=== PATIENT | male | born 1970 | race Caucasian/White ===

== ENCOUNTER 2020-08-25 16:09 | Emergency (ER) | payer OTHER, SELFPAY ==
[2020-08-25 16:15] VITALS: BP 140/85; PULSE 79; RESP 14; TEMP 37.3; O2SAT 99; BMI 20.9
--- NOTE | 2020-08-25 16:42 | CM.SWNOTE ---
SALES AND CUSTOMER RELATIONS REP Note SALES AND CUSTOMER RELATIONS REP receives consult and meets privately with patient in the waiting area. Patient is 50 y/o male seeking medical clearance evaluation for detox bed at [facility] in [place]. Patient states he went to the [facility] and they sent him to the ED. Patient states he contacted his insurance company [employer] [place] and this evaluation/medical report is what they need for coverage of the detox and treatment. Patient states the [employer] fax number is : [phone] SALES AND CUSTOMER RELATIONS REP states that it is uncertain how long patient will need to wait to be seen in the ED due to the wait. Patient states he does not have time today to wait but will come back early in the morning and take tomorrow off work. SALES AND CUSTOMER RELATIONS REP informs patient that ED is open 24 hours and it is uncertain what the wait time will be at any given time. SALES AND CUSTOMER RELATIONS REP encourages patient to stay and states that ED Provider can do the needed labs for her medical clearance for detox. Patient states he will return tomorrow morning. Plan: patient is leaving without being seen today and plans to return to this ED for medical evaluation. Araseli Souza MSW
--- NOTE | 2020-08-26 16:31 | CM.SWNOTE ---
BACK STAYER Note BACK STAYER speaks with patient, he states that he came to this ED this morning at 6:00am for medical detox evaluation and that the ED staff contacts his insurance company and there is some confusion about what his insurance company needs in order for patient to get into detox. Patient states that [facility] will have a bed for him on Saturday08/29/20. BACK STAYER asks patient about his use, he states he is still using and he has been using 2 spoonfuls of Kratom every 6 hours. 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 Patient states he wants to get help and get treatment and is frustrated by the process with the ED and his insurance. Patient states that he and his have heard differing reports about where he can get the medical evaluation. BACK STAYER states that BACK STAYER will be at the hospital on Saturday and BACK STAYER can ensure that patient gets the medical evaluation and BACK STAYER evaluation needed and BACK STAYER will fax to insurance company for him to obtain detox bed. DA Sharp
== END 2020-08-25 16:40 | disposition left against medical advice (07) ==
PROVIDERS: Emergency Provider Emergency Medicine; Family Provider Family Medicine
CPT/HCPCS: 99281

== ENCOUNTER → 2020-11-17 13:47 | Outpatient (CLI) | payer OTHER, SELFPAY ==
[2020-11-17 14:45] LABS: Ur Creatinine Normal (Normal); Ur Specific Gravity Normal (Normal)
[2020-11-17 14:46] LABS: UR Morphine/Opiate cutoff 300 Negative (Negative); Urine Amphetamines Negative (Negative); Urine Barbiturates Negative (Negative); Urine Benzodiazepines Negative (Negative); Urine Cocaine Negative (Negative); Urine MDMA Negative (Negative); Urine Methadone Negative (Negative); Urine Methamphetamines Negative (Negative); Urine Oxycodone Negative (Negative); Urine Phencyclidine Negative (Negative); Urine Tetrahydrocannabinol Negative (Negative); Urine Tricyclic Antidepressant Negative (Negative); Urine pH Normal (Normal)
== END ==
PROVIDERS: Family Provider Family Medicine; Referring Provider Family Medicine Addiction Medicine; Visit Provider Family Medicine Addiction Medicine
DX: F10.20 Alcohol dependence, uncomplicated (principal); F11.20 Opioid dependence, uncomplicated; F12.20 Cannabis dependence, uncomplicated
CPT/HCPCS: 80305

== ENCOUNTER → 2021-01-10 13:49 | Outpatient (CLI) | payer OTHER, SELFPAY ==
[2021-01-10 16:32] LABS: UR Morphine/Opiate cutoff 300 Negative (Negative); Ur Creatinine Normal (Normal); Ur Specific Gravity Normal (Normal); Urine Amphetamines Negative (Negative); Urine Barbiturates Negative (Negative); Urine Benzodiazepines Negative (Negative); Urine Cocaine Negative (Negative); Urine MDMA Negative (Negative); Urine Methadone Negative (Negative); Urine Methamphetamines Negative (Negative); Urine Oxycodone Negative (Negative); Urine Phencyclidine Negative (Negative); Urine Tetrahydrocannabinol Negative (Negative); Urine Tricyclic Antidepressant Negative (Negative); Urine pH Normal (Normal)
== END ==
PROVIDERS: Family Provider Family Medicine; Referring Provider Family Medicine Addiction Medicine; Visit Provider Family Medicine Addiction Medicine
DX: F10.20 Alcohol dependence, uncomplicated (principal); F11.20 Opioid dependence, uncomplicated; F12.20 Cannabis dependence, uncomplicated
CPT/HCPCS: 80305

== ENCOUNTER → 2021-04-24 09:09 | Outpatient (CLI) | payer OTHER, SELFPAY ==
[2021-04-26 14:36] LABS: Cannabinoid Screen, Urine Negative ng/mL (Cutoff=20); Creatinine, Urine 22.2 mg/dL (20.0-300.0); Ethyl Glucuronide Screen Negative ng/mL (Cutoff=500); Methadone Screen, Urine Negative ng/mL (Cutoff=300); Oxycodone/Oxymorphone, Urine Negative ng/mL (Cutoff=100); Phencyclidine Screen, Urine Negative ng/mL (Cutoff=25); pH, Urine 7.1 (4.5-8.9)
== END ==
PROVIDERS: Family Provider Family Medicine; Referring Provider Preventive Medicine Addiction Medicine; Visit Provider Preventive Medicine Addiction Medicine
DX: F10.20 Alcohol dependence, uncomplicated (principal); F11.20 Opioid dependence, uncomplicated; F12.20 Cannabis dependence, uncomplicated
CPT/HCPCS: 80307; 80321

== ENCOUNTER → 2021-07-31 07:40 | Outpatient (CLI) | payer OTHER, SELFPAY ==
[2021-07-31 08:45] LABS: Hematocrit 46.7 % (41-53); Hemoglobin 15.8 g/dL (13.5-17.5); Mean Corpuscular HGB Conc 33.9 % (30-36); Mean Corpuscular Hemoglobin 31.2 PG (26-34); Mean Corpuscular Volume 91.9 fL (80-100); Platelet Count 225 X10^3/uL (150-400); Red Blood Cell Count 5.08 X10^6/uL (4.5-5.9); Red Cell Distribution Width 13.5 % (11.6-14.8); White Blood Cell Count 5.6 X10^3/uL (4.5-11.0)
[2021-07-31 09:08] LABS: Alanine Aminotransferase 28 IU/L (<50); Albumin 4.4 g/dL (3.5-5.0); Albumin Globulin Ratio 1.8 (1.0-2.8); Alkaline Phosphatase 54 U/L (38-126); Aspartate Aminotransferase 26 IU/L (17-59); BUN Creatinine Ratio 15.6 (6-22); Bilirubin Total 0.3 mg/dL (0.2-1.3); Blood Urea Nitrogen 15 mg/dL (9-20); Calcium 9.3 mg/dL (8.4-10.2); Carbon Dioxide 29 mmol/L (22-32); Chloride 106 mmol/L (98-107); Cholesterol 160 mg/dL (140-199); Estimated Glomerular Filt Rate > 60 mL/min (>60); Globulin 2.5 g/dL (1.7-4.1); Glucose 93 mg/dL (70-100); HDL Cholesterol 49 mg/dL (40-60); HEMOLYSIS < 15 (0-50); LDL Cholesterol Calculated 96 mg/dL (<100); Potassium 4.2 mmol/L (3.4-5.1); Sodium 141 mmol/L (137-145); Total Protein 6.9 g/dL (6.3-8.2); Triglycerides 77 mg/dL (35-150)
[2021-07-31 10:06] LABS: Neutrophils Absolute Manual 2352 /uL (3000-5900); Total Cells Counted 100
[2021-07-31 10:07] LABS: RBC Morphology Normal Morphology
== END ==
PROVIDERS: Family Provider Family Medicine; Referring Provider Family Medicine; Visit Provider Family Medicine
DX: Z00.00 Encounter for general adult medical examination without abnormal findings (principal); Z13.6 Encounter for screening for cardiovascular disorders; Z13.220 Encounter for screening for lipoid disorders
CPT/HCPCS: 36415; 80053; 80061; 85025

== ENCOUNTER → 2021-12-25 09:15 | Outpatient (CLI) | payer OTHER, SELFPAY ==
[2021-12-25 10:29] LABS: COVID19 -Nasal RAPID Negative (Negative)
== END ==
PROVIDERS: PCP Pediatrics; Visit Provider Surgery
DX: Z20.822 Contact with and (suspected) exposure to COVID-19 (principal); Z01.812 Encounter for preprocedural laboratory examination
CPT/HCPCS: 87635; C9803

== ENCOUNTER 2021-12-26 06:29 | Day surgery (SDC) | payer OTHER, SELFPAY ==
--- NOTE | 2021-12-26 | PATH_ITS ---
[facility] Accession Number: [id number] . 01 Material submitted: . rectum - RECTUM BIOPSY . 01 Diagnosis: Rectum, Biopsy: Tubular adenoma, two fragments. JOSE LUIS 12/28/2021 1120 Local . 01 Electronically signed: . Veda Medina MD, Pathologist NPI- [id number] . 01 Gross description: . RECTUM BIOPSY: Received in formalin are 2 fragment(s) of tobias, soft tissue measuring 0.3 x 0.3 x 0.2 cm to 0.2 x 0.2 x 0.1 cm submitted entirely in 1 cassette(s) /CPE 12/27/2021 0649 Local . 01 Pathologist provided ICD-10: D12.8 . 01 CPT . 026596 Specimen Comment: A courtesy copy of this report has been sent to [phone] Performed at: 01 [facility] [address] [place] [address], [place], [place] [id number] MD Jamshid Reis MD Phone: [phone]
[2021-12-26 07:09] VITALS: BMI 23.8
[2021-12-26 07:24] VITALS: BP 129/85; PULSE 64; RESP 16; TEMP 36.6; O2SAT 100
[2021-12-26] MEDS: LACTATED RINGERS 1,000 ML 200 ML IV (07:34)
--- NOTE | 2021-12-26 07:44 | PM.HP.1 ---
History of Present Illness History of Present Illness Date Patient Seen: 12/26/21 Time Patient Seen: 07:44 Chief complaint: SDC Narrative: The patient presents for colorectal screening. They have never had any previous examination for such. No personal or family history of colon cancer. On further history denies any recent gastrointestinal symptoms. No nausea, vomiting, abdominal pain, loss of appetite, unexplained weight loss, change in bowel habits, diarrhea, constipation, melena, hematochezia, or bright red blood per rectum. Patient History Medical History Costochondritis Preventative [facility] care Screening for skin cancer Surgical History History of vasectomy Family & Social History Family History Mother Age: 73 Malignant neoplasm of female breast, unspecified laterality, unspecified site of breast Social History: household members spouse,family Tobacco & Substance use: Smoking Status Never smoker alcohol intake never alcohol intake frequency 3 or more drinks per day Substance Use Type does not use,other Meds Home Medications and Allergies Home Medications Medication Instructions Recorded Confirmed Type ASCORBIC ACID (VITAMIN C) 1,000 mg PO EVERY OTHER DAY ##0 08/28/11 12/26/21 History MULTIVITAMIN (#MULTIPLE VITAMINS) 1 cap PO Q DAY ##0 08/28/11 10/19/21 History omega 3-cqk-wfa-fish oil 1,000 mg 1,000 mg PO ##0 04/08/16 10/19/21 History (120 mg-180 mg) capsule (Fish Oil) quercetin PO 08/23/21 10/19/21 History Allergies Allergy/AdvReac Type Severity Reaction Status Date / Time No Known Drug Allergies Allergy Verified 12/26/21 07:22 Exam Vital Signs (past 8 hours): - 12/26/21 07:24 Temperature 97.9 F Pulse Rate 64 Respiratory Rate 16 Blood Pressure 129/85 Pulse Oximetry 100 Oxygen Delivery Method Room Air Oxygen Delivery Method Room Air Narrative Exam Narrative: General adult male alert oriented no acute distress Abdomen soft nontender nondistended Assessment & Plan Assessment & Plan narrative: The patient requires colorectal screening and colonoscopy is recommended. Technical details were discussed. Risks, benefits, alternatives explained. Risks including but not limited to myocardial infarction, aspiration, bleeding, pain, missed lesion, incomplete examination, need for further radiographic studies, colonic perforation, and need for major abdominal surgery were discussed. All questions were answered to their satisfaction, and they are in agreement with this plan. Time Spent With Patient Critical Care time: I spent a total of [] minutes of critical care time on this patient's care today; this time is exclusive of procedural time.
--- NOTE | 2021-12-26 07:45 | P.OP.COLON_ITS ---
Operative Date/Time/Diagnoses Date of procedure: 12/26/21 Time of procedure: 07:46 Pre-op diagnosis: screening Post-op diagnosis: same Procedure & Clinicians Study performed: Colonoscopy Same procedure as scheduled: Yes Indications: Screening Surgeon: Issa Rodriguez Procedure Notes Procedure in detail: Medications: Conscious sedation using 7mg IV midazolam and 200mcg IV of fentanyl The history and physical was performed/updated and the patient is ASA class is 1. The procedure was discussed in detail with the patient. Potential risks complications including infection, bleeding, missed diagnosis, perforation, need for surgery, and were explained. Their questions were answered and informed consent was obtained. Patient was brought to the procedure room and placed standard monitoring equipment. The patient's vital signs were monitored continuously throughout the entire procedure. Prior to starting time-out was performed. The patient was placed in the left lateral recumbent position. Procedural sedation was adminis tered. Examination began with a thorough inspection of the perianal area there was no evidence of fissures, fistulae, external hemorrhoids or cutaneous malignancy. The colonoscopy scope was then placed into the anal canal and was advanced to the cecum, which was identified by the ileocecal valve, the appendiceal orifice and the confluence of the taenia. The scope was then slowly withdrawn examining colon thoroughly in all directions, irrigating it of any residual stool. FINDINGS 1. Distal Rectum 5 mm polyp removed with biopsy forceps 2. Sigmoid Diverticulosis-mild The patient tolerated the procedure well. They will be discharged once criteria are met. The prep was of good/excellent quality. The withdrawl time was 6 minutes. The sedation time was 17 minutes. Impression: Colonic polyp Post-procedure Recommendations: Will call with biopsy results Disposition: same day surgery
[2021-12-26] MEDS: MIDAZOLAM 5 MG/5 ML VIAL 7 MG IV (07:49)
[2021-12-26 08:10] VITALS: BP 102/56; PULSE 58; RESP 16; TEMP 36.4; O2SAT 100
[2021-12-26 08:15] VITALS: BP 86/55; PULSE 64; RESP 12; O2SAT 95
[2021-12-26] MEDS: fentaNYL 100 MCG/2 ML INJ 200 MCG IV (08:15)
[2021-12-26 08:20] VITALS: BP 96/64; PULSE 57; RESP 10; O2SAT 96
[2021-12-26 08:25] VITALS: BP 98/66; PULSE 63; RESP 16; O2SAT 97
[2021-12-26 08:29] VITALS: BP 103/64; PULSE 61; RESP 10; TEMP 36.4; O2SAT 97
== END 2021-12-26 08:44 | disposition home or self-care (01) ==
PROVIDERS: PCP Pediatrics; Referring Provider Surgery; Visit Provider Surgery
PROC: 0DJD8ZZ Inspection of Lower Intestinal Tract, Via Natural or Artificial Opening Endoscopic (ICD-10-PCS; CPT 45378; principal; 2021-12-26 07:45)
DX: Z12.11 Encounter for screening for malignant neoplasm of colon (principal); K57.30 Diverticulosis of large intestine without perforation or abscess without bleeding; D12.8 Benign neoplasm of rectum
CPT/HCPCS: 45380; 99152; J2250; J3010

== ENCOUNTER → 2023-05-14 08:37 | Outpatient (CLI) | payer OTHER, SELFPAY ==
[2023-05-14 09:26] LABS: Add Manual Diff / Slide Review NO; Basophils Absolute Auto 100 /uL (0-100); Basophils Percent Auto 0.9 % (0-2); Eosinophils Absolute Auto 100 /uL (0-450); Eosinophils Percent Auto 1.1 % (2-4); Hematocrit 45.4 % (41-53); Hemoglobin 15.7 g/dL (13.5-17.5); Lymphocytes Absolute Auto 1800 /uL (1100-4500); Mean Corpuscular HGB Conc 34.6 % (30-36); Mean Corpuscular Hemoglobin 31.4 PG (26-34); Mean Corpuscular Volume 90.9 fL (80-100); Monocytes Absolute Auto 400 /uL (0-900); Neutrophils Absolute Auto 3400 /uL (1500-7000); Platelet Count 234 X10^3/uL (150-400); Red Cell Distribution Width 13.7 % (11.6-14.8); White Blood Cell Count 5.8 X10^3/uL (4.5-11.0)
[2023-05-14 10:07] LABS: Alanine Aminotransferase 25 IU/L (<50); Albumin 4.3 g/dL (3.5-5.0); Albumin Globulin Ratio 1.4 (1.0-2.8); Alkaline Phosphatase 47 U/L (38-126); Aspartate Aminotransferase 27 IU/L (17-59); BUN Creatinine Ratio 16.1 (6-22); Bilirubin Total 0.8 mg/dL (0.2-1.3); Blood Urea Nitrogen 14 mg/dL (9-20); Calcium 9.2 mg/dL (8.4-10.2); Carbon Dioxide 28 mmol/L (22-32); Chloride 103 mmol/L (98-107); Cholesterol 161 mg/dL (140-199); Estimated Glomerular Filt Rate > 60 mL/min (>60); Glucose 92 mg/dL (70-100); HDL Cholesterol 38 mg/dL (40-60); HEMOLYSIS < 15 (0-50); LDL Cholesterol Calculated 104 mg/dL (<100); Potassium 4.2 mmol/L (3.4-5.1); Sodium 139 mmol/L (137-145); Total Protein 7.3 g/dL (6.3-8.2); Triglycerides 96 mg/dL (35-150)
[2023-05-14 10:34] LABS: TSH w/ Reflex to FT4 1.85 uIU/mL (0.47-4.68)
[2023-05-14 10:36] LABS: Prostate Specific Antigen Scrn 1.75 ng/mL (0.1-4.0)
== END ==
PROVIDERS: PCP Family Medicine; Referring Provider Family Medicine; Visit Provider Family Medicine
DX: Z00.00 Encounter for general adult medical examination without abnormal findings (principal); Z12.5 Encounter for screening for malignant neoplasm of prostate
CPT/HCPCS: 36415; 80053; 80061; 84443; 85025; G0103

== ENCOUNTER → 2023-06-14 11:00 | Outpatient (CLI) | payer OTHER, SELFPAY ==
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
== END ==
PROVIDERS: PCP Family Medicine; Referring Provider Nurse Practitioner Family; Visit Provider Nurse Practitioner Family
DX: S90.31XA Contusion of right foot, initial encounter (principal); V29.99XA Rider (driver) (passenger) of other motorcycle injured in unspecified traffic accident, initial encounter; M19.071 Primary osteoarthritis, right ankle and foot; M77.31 Calcaneal spur, right foot
CPT/HCPCS: 73630

== ENCOUNTER → 2023-06-21 19:18 | Outpatient (CLI) | payer OTHER, SELFPAY ==
--- NOTE | 2023-06-21 | DI.MRI.S_ITS ---
PROCEDURE: MR ANKLE RT WO CON INDICATIONS: Pain in right ankle and joints of right foot TECHNIQUE: Noncontrast sagittal T1 spin echo and T2 fast spin echo with fat saturation, axial proton density fast spin echo and T2 fast spin echo with fat saturation, coronal T1 spin echo and T2 fast spin echo with fat saturation through the ankle/hindfoot. COMPARISON: None. FINDINGS: Image quality: Excellent. Bones and joints: There is mild ankle soft tissue swelling. Marrow edema is noted in visualized 3rd through 5th metatarsal bases without definite fracture line. Mild edema in 1st metatarsal base and distal portion of cuboid are also seen. No discrete fracture line. No osteochondral injuries of the talar dome. Small tibiotalar joint effusion is seen, no gross loose bodies. Medial structures: The distal posterior tibialis tendon is mildly thickened with small amount of surrounding fluid distending tendon sheath. The flexor digitorum longus, and flexor hallucis longus tendons are intact. The posterior tibial neurovascular bundle appears normal within the tarsal tunnel, without extrinsic mass effect. The deltoid ligament and spring ligament are mildly thickened. Lateral structures: The anterior talofibular, calcaneofibular, and posterior talofibular ligaments appear thickened with intrasubstance T2 hyperintense signal.. More superiorly, the anterior and posterior tibiofibular ligaments also appears thickened with intrasubstance T2 hyperintense signal. The tibiofibular syndesmosis is normal in width at 2 mm or less. The peroneus longus and brevis tendons are mildly thickened at the level of lateral malleolus extending to the level of calcaneocuboid joint. The sinus tarsi demonstrates normal fatty signal, without edema, fibrosis, or cyst formation. Visualized sinus tarsi components (cervical ligament, interosseous talocalcaneal ligament, roots of the inferior extensor retinaculum) appear normal. Lobulated subcutaneous soft tissue T2 hyperintense signal contains internal septation in dorsal and lateral aspect of midfoot and forefoot is seen incompletely evaluated on this study. Anterior structures: The tibialis anterior, extensor hallucis longus, and extensor digitorum longus tendons appear intact. The dorsal talonavicular ligament appears intact. Posterior and plantar structures: Achilles tendon is intact. Medial and lateral bands of the plantar fascia are of normal thickness. No abductor digiti quinti muscle atrophy to suggest Castellon neuropathy. IMPRESSION: 1. Likely bony contusion involving 3rd through 5th metatarsal base and distal cuboid. Contusion versus changes related to osteoarthritis involving 1st metatarsal base. Possible subcutaneous soft tissue hematoma over dorsal and medial aspect of forefoot and midfoot, please correlate with MRI of foot findings. 2. No other area of abnormal marrow signal. No osteochondral injuries of talar dome. Small joint effusion, no gross loose bodies. 3. Low-grade tenosynovitis involving distal posterior tibialis tendon. 4. Mild tendinosis involving peroneus tendons at the level of lateral malleolus extending to the level of cuboid. 5. Low-grade medial ankle ligament sprain. Moderate grade sprain/intrasubstance partial-thickness tear involving lateral ankle ligaments. No full-thickness ligament rupture. Dictated by: Flako Machado M.D. on 06/24/2023 at 11:42 Approved by: lFako Machado M.D. on 06/24/2023 at 11:59
--- NOTE | 2023-06-21 | DI.MRI.S_ITS ---
PROCEDURE: MR FOOT RT WO CON INDICATIONS: Pain in right ankle and joints of right foot TECHNIQUE: Multiphasic, multisequence MRI of the forefoot was performed, without intravenous contrast administration. COMPARISON: [facility], CR, XR FOOT RT MIN 3V, 06/14/2023, 11:07. FINDINGS: Image quality: Excellent. Bones and joints: Osteoarthritic changes are noted throughout midfoot and forefoot more notably involving 1st MTP joint and 1st through 4th TMT joints. Subcortical cystic changes and T2 hyperintense signal involving 1st metatarsal head, 1st metatarsal base, 3rd 3rd through 5th metatarsal base are seen without definite fracture line. No other area of abnormal marrow signal. No signal abnormality is seen within the sesamoids of 1st metatarsal head. Soft tissues: Lobulated and septated area of T2 hyperintense signal and T1 hypointense signal involving dorsal and lateral midfoot and forefoot soft tissue is seen measures up to 4.2 x 0.9 x 8.3 cm in size series 7, image 13 and series 9, image 23. The visualized plantar foot muscles demonstrate normal signal and bulk. Visualized flexor and extensor tendons appear intact, without tenosynovitis. The distal insertions of the peroneus brevis and longus tendons appear intact. The principal Lisfranc ligament appears intact. IMPRESSION: 1. Mild midfoot and forefoot joint osteoarthritis. Suggestion of contusion versus changes secondary to osteoarthritis involving 3rd through 5th metatarsal bases. Likely osteochondral injuries involving 1st metatarsal head and 1st metatarsal base. No definite acute fracture or dislocation. 2. Significant soft tissue swelling and edema over dorsal and lateral aspect of midfoot and forefoot with lobulated and septated heterogeneously T2 hyperintense signal within subcutaneous soft tissue as described above likely represent organizing hematoma given patient's history of recent trauma. Clinical correlation and follow-up is recommended. 3. Extensor and flexor tendons are intact. No gross right foot muscle signal abnormalities. Dictated by: Flako Machado M.D. on 06/24/2023 at 10:52 Approved by: Flako Machado M.D. on 06/24/2023 at 11:41
== END ==
PROVIDERS: PCP Family Medicine; Referring Provider Physician Assistant Medical; Visit Provider Physician Assistant Medical
DX: M25.571 Pain in right ankle and joints of right foot (principal); M19.071 Primary osteoarthritis, right ankle and foot; M79.89 Other specified soft tissue disorders
CPT/HCPCS: 73718; 73721

== ENCOUNTER → 2023-07-16 12:40 | Outpatient (CLI) | payer OTHER, SELFPAY | LOC: WC 07-23 12:40 | PROVIDERS: PCP Family Medicine; Referring Provider Family Medicine; Visit Provider Surgery | DX: S97.81XA Crushing injury of right foot, initial encounter (principal); R60.0 Localized edema; L53.9 Erythematous condition, unspecified | CPT/HCPCS: 11042; 99204; 99214 ==

== ENCOUNTER → 2023-07-23 15:07 | Outpatient (CLI) | payer OTHER, SELFPAY | PROVIDERS: PCP Family Medicine; Referring Provider Orthopaedic Surgery Foot and Ankle Surgery; Visit Provider Surgery | DX: S91.302A Unspecified open wound, left foot, initial encounter (principal); S97.81XA Crushing injury of right foot, initial encounter; L08.89 Other specified local infections of the skin and subcutaneous tissue; S90.32XA Contusion of left foot, initial encounter; R60.0 Localized edema; L53.9 Erythematous condition, unspecified | CPT/HCPCS: 11042 ==

== ENCOUNTER → 2023-07-24 14:56 | Outpatient (CLI) | payer OTHER, SELFPAY ==
[2023-07-26 18:32] LABS: C difficie Toxins A and B, EIA Negative (Negative)
== END ==
PROVIDERS: PCP Family Medicine; Referring Provider Nurse Practitioner; Visit Provider Nurse Practitioner
DX: R19.7 Diarrhea, unspecified (principal)
CPT/HCPCS: 87045; 87177; 87324

== ENCOUNTER → 2023-08-02 09:15 | Outpatient (CLI) | payer OTHER, SELFPAY | PROVIDERS: PCP Family Medicine; Referring Provider Family Medicine; Visit Provider Physician Assistant | DX: S91.301A Unspecified open wound, right foot, initial encounter (principal) | CPT/HCPCS: 11042; 99214 ==

== ENCOUNTER → 2023-08-06 14:53 | Outpatient (CLI) | payer OTHER, SELFPAY | PROVIDERS: PCP Family Medicine; Referring Provider Orthopaedic Surgery Foot and Ankle Surgery; Visit Provider Surgery | DX: S91.301A Unspecified open wound, right foot, initial encounter (principal); S97.81XS Crushing injury of right foot, sequela; M79.81 Nontraumatic hematoma of soft tissue; R60.0 Localized edema | CPT/HCPCS: 11042 ==

== ENCOUNTER → 2023-08-13 14:25 | Outpatient (CLI) | payer OTHER, SELFPAY | LOC: WC 14:56 | PROVIDERS: PCP Family Medicine; Referring Provider Orthopaedic Surgery Foot and Ankle Surgery; Visit Provider Surgery | DX: S91.301A Unspecified open wound, right foot, initial encounter (principal); S97.81XS Crushing injury of right foot, sequela; R60.0 Localized edema | CPT/HCPCS: 11042; 99213 ==

== ENCOUNTER → 2023-08-27 14:45 | Outpatient (CLI) | payer OTHER, SELFPAY | PROVIDERS: PCP Family Medicine; Referring Provider Family Medicine; Visit Provider Surgery | DX: S91.301D Unspecified open wound, right foot, subsequent encounter (principal) | CPT/HCPCS: 99212; 99213 ==

== ENCOUNTER → 2024-03-13 09:52 | Outpatient (CLI) | payer OTHER, SELFPAY ==
[2024-03-13 11:57] LABS: Add Manual Diff / Slide Review NO; Basophils Absolute Auto 100 /uL (0-100); Eosinophils Absolute Auto 100 /uL (0-450); Eosinophils Percent Auto 1.4 % (2-4); Hematocrit 46.6 % (41-53); Lymphocytes Absolute Auto 2100 /uL (1100-4500); Lymphocytes Percent Auto 35.2 % (25-40); Mean Corpuscular HGB Conc 34.2 % (30-36); Mean Corpuscular Hemoglobin 31.7 PG (26-34); Mean Corpuscular Volume 92.6 fL (80-100); Monocytes Absolute Auto 400 /uL (0-900); Monocytes Percent Auto 6.3 % (3-14); Neutrophils Absolute Auto 3300 /uL (1500-7000); Neutrophils Percent Auto 56.1 % (50-75); Platelet Count 258 X10^3/uL (150-400); Red Blood Cell Count 5.04 X10^6/uL (4.5-5.9); Red Cell Distribution Width 13.5 % (11.6-14.8); White Blood Cell Count 5.9 X10^3/uL (4.5-11.0)
[2024-03-13 12:20] LABS: Alanine Aminotransferase 81 IU/L (<50); Albumin 4.7 g/dL (3.5-5.0); Albumin Globulin Ratio 1.7 (1.0-2.8); Alkaline Phosphatase 61 U/L (38-126); Aspartate Aminotransferase 55 IU/L (17-59); BUN Creatinine Ratio 11.1 (6-22); Bilirubin Total 0.7 mg/dL (0.2-1.3); Blood Urea Nitrogen 11 mg/dL (9-20); Calcium 9.9 mg/dL (8.4-10.2); Carbon Dioxide 28 mmol/L (22-32); Chloride 104 mmol/L (98-107); Cholesterol 139 mg/dL (140-199); Estimated Glomerular Filt Rate > 60 mL/min (>60); Globulin 2.7 g/dL (1.7-4.1); Glucose 96 mg/dL (70-100); HDL Cholesterol 43 mg/dL (40-60); HEMOLYSIS < 15 (0-50); LDL Cholesterol Calculated 75 mg/dL (<100); Potassium 4.5 mmol/L (3.4-5.1); Sodium 140 mmol/L (137-145); Total Protein 7.4 g/dL (6.3-8.2); Triglycerides 107 mg/dL (35-150)
[2024-03-13 12:51] LABS: Prostate Specific Antigen 1.72 ng/mL (0.10-4.00)
== END ==
PROVIDERS: PCP Family Medicine; Referring Provider Family Medicine; Visit Provider Family Medicine
DX: Z00.00 Encounter for general adult medical examination without abnormal findings (principal)
CPT/HCPCS: 36415; 80053; 80061; 84153; 85025

== ENCOUNTER → 2024-06-23 09:42 | Outpatient (CLI) | payer OTHER, SELFPAY ==
--- NOTE | 2024-06-23 09:44 | DI.RAD.S_ITS ---
PROCEDURE: XR HIP W PEL IF DONE RT 2V INDICATIONS: R hip pain TECHNIQUE: AP pelvis with lateral view(s) of the right hip(s). COMPARISON: None. FINDINGS: Bones: No fractures or dislocations. Kwxa-op-yqhrjnke osteoarthritic degenerative changes of the right hip include joint space narrowing, marginal osteophytosis and acetabular subchondral sclerosis. Pelvic ring appears intact. No suspicious bony lesions. Soft tissues: The visualized bowel gas pattern is normal. No suspicious soft tissue calcifications. IMPRESSION: Degenerative change of the right hip without evidence of acute bony abnormality. Dictated by: Aditya Vela M.D. on 06/24/2024 at 4:13 Approved by: Aditya Vela M.D. on 06/24/2024 at 4:14
== END ==
PROVIDERS: PCP Family Medicine; Referring Provider Family Medicine; Visit Provider Family Medicine
DX: M25.551 Pain in right hip (principal)
CPT/HCPCS: 73502

== ENCOUNTER → 2024-12-31 10:12 | Outpatient (CLI) | payer OTHER, SELFPAY ==
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
== END ==
PROVIDERS: PCP Family Medicine; Referring Provider Physician Assistant; Visit Provider Physician Assistant
DX: S89.91XA Unspecified injury of right lower leg, initial encounter (principal); M79.89 Other specified soft tissue disorders; X58.XXXA Exposure to other specified factors, initial encounter
CPT/HCPCS: 73562